=== PATIENT | female | born 1970 | race Caucasian/White ===

== ENCOUNTER 2021-12-02 18:43 | Emergency (ER) | payer MEDICARE, OTHER ==
[~2021-12-02] VITALS: Ht 152.4 cm; Wt 69.2 kg
--- NOTE | 2021-12-02 18:54 | ED General ---
General Stated Complaint: ALL OVER BODY RASH,THROAT CLOSING History of Present Illness Date Seen by Provider: Dec 02, 2021 Time Seen by Provider: 18:54 Initial Comments 51-year-old female presents with an allover body rash that comes and goes along with urticaria. Patient also feels like maybe she has a little bit of throat discomfort. Patient has a history of your urticaria and vasculitis. Patient was supposed to see a pressing department supervisor tomorrow but her appointment got canceled. She has been off of her Zyprexa and Lizzette for approximately a week. She reports that seems like the symptoms got worse after she got off the phone with a pressing department supervisor. Patient has been having some urticaria and vasculitis outbreaks on and off since she stopped her medication. She has some mild stomach discomfort. She denies any fever, chills, sore throat. She feels like the throat problem is a lump that she can feel with her fingers. She was recently told that her thyroid labs were low. Allergies and Home Medications Allergies Coded Allergies: azathioprine (Verified Allergy, Unknown, 12/02/21) Patient Home Medication List Home Medication List Reviewed: Yes Review of Systems Review of Systems Constitutional: see HPI; No chills, No fever; malaise EENTM: see HPI Respiratory: No cough, No short of breath Cardiovascular: No chest pain, No palpitations Gastrointestinal: No abdominal pain, No constipation; nausea; No vomiting Genitourinary: no symptoms reported Musculoskeletal: no symptoms reported Skin: see HPI Psychiatric/Neurological: No Symptoms Reported Hematologic/Lymphatic: No Symptoms Reported Immunological/Allergic: no symptoms reported Physical Exam Vital Signs Vital Signs - First Documented 12/02/21 18:50 Temp 37.1 Pulse 107 Resp 16 B/P (MAP) 129/106 (114) Pulse Ox 95 O2 Delivery Room Air Capillary Refill : Height, Weight, BMI Height: '" Weight: lbs. oz. kg; BMI Method: General Appearance: No Apparent Distress, WD/WN HEENT: Other (Mild swelling of her upper lip with a hive, no abnormal pharyngeal erythema or swelling. No obvious difficulty swallowing) Neck: Non Tender; No Lymphadenopathy (L), No Lymphadenopathy (R) Respiratory: Lungs Clear, Normal Breath Sounds; No Stridor, No Wheezing Cardiovascular: Regular Rate, Rhythm Gastrointestinal: Non Tender, Soft Extremity: Normal Capillary Refill, Normal Inspection, Normal Range of Motion Neurologic/Psychiatric: Alert Skin: Other (Very mild sporadic urticaria/vasculitis rash diffusely) Progress/Results/Core Measures Suspected Sepsis SIRS Temperature: Pulse: Respiratory Rate: Blood Pressure / Mean: Results/Orders My Orders Orders - JOSY FLORES DO Ed Iv/Invasive Line Start (12/02/21 18:57) Diphenhydramine Injection (Benadryl Inje (12/02/21 18:57) Dexamethasone Injection (Decadron Inje (12/02/21 19:00) Famotidine Tablet (Pepcid Tablet) (12/02/21 18:57) Ondansetron Injection (Zofran Injectio (12/02/21 19:45) Hydroxyzine Cap/Tab (Vistaril) (12/02/21 20:30) Medications Given in ED Current Medications Medications Dose Ordered Sig/Kelly Route Start Time Stop Time Status Last Admin Dose Admin Dexamethasone Sodium Phosphate 10 mg ONCE ONCE IV 12/02/21 19:00 12/02/21 19:01 DC 12/02/21 19:11 10 MG Hydroxyzine Pamoate 25 mg ONCE ONCE PO 12/02/21 20:30 12/02/21 20:31 DC 12/02/21 20:29 25 MG Ondansetron HCl 4 mg ONCE ONCE IVP 12/02/21 19:45 12/02/21 19:46 DC 12/02/21 19:51 4 MG Vital Signs/I&O 12/02/21 12/02/21 18:50 21:03 Temp 37.1 Pulse 107 75 Resp 16 16 B/P (MAP) 129/106 (114) 102/69 Pulse Ox 95 98 O2 Delivery Room Air Room Air Capillary Refill : Progress Note : Progress Note Patient had minimal urticaria on arrival and improved throughout the stay. She did complain of frequent itching while she was here. I did provide her with hydroxyzine. I recommended she start Lizzette backup upon discharge. Did discuss with her that we will probably take a couple days for her itching to get under control. She should follow-up with her primary care provider in a couple days if symptoms or not improving. Patient stable and discharged home. Patient had minimal work-up since she has known chronic urticaria and vasculitis. Patient reports that she will restart her medication of Lizzette and hydroxyzine daily. She does have an appointment with her pressing department supervisor on the of this month. Departure Impression Primary Impression: Urticaria Additional Impression: Vasculitis Disposition: 01 HOME, SELF-CARE Condition: Stable Departure-Patient Inst. Patient Instructions: Chronic Hives, Vasculitis (DC) Add. Discharge Instructions: Please restart your Lizzette and hydroxyzine in the a.m. Follow-up with your primary care provider for further outpatient evaluation JOSY FLORES DO Dec 02, 2021 18:54
[2021-12-02] MEDS ORDERED: FAMOTIDINE 20 MG (PEPCID) TABLET PO STA (18:57)
[2021-12-02] MEDS ORDERED: diphenhydrAMINE 50 MG/ML INJ (BENADRYL) IV STA (18:57)
[2021-12-02] MEDS ORDERED: ONDANSETRON 4 MG/2 ML (SDV) Z0FRAN IVP ONE (19:45)
[2021-12-02] MEDS ORDERED: hydrOXYzine (VISTARIL/ATARAX) 25 MG capsule/tablet PO ONE (20:30)
[2021-12-02 21:03] VITALS: BP 102/69
== END 2021-12-02 21:02 | disposition home or self-care (01) ==
LOC: ER FS 18:45
DX: L50.9 Urticaria, unspecified (principal)